=== PATIENT | female | born 1995 | race Caucasian/White ===

== ENCOUNTER 2022-08-12 11:11 | Emergency (ER) | payer MEDICAID ==
[~2022-08-12] VITALS: Ht 154.9 cm; Wt 79.0 kg
[~2022-08-12 11:11] MED LIST: CARI350T27 PO; CIPR-263 PO; DOCU240C26 PO; FERR325T30 PO; IBUP-2741 PO; PROM50TA2 PO; TRAM50TA PO
[2022-08-12 11:18] VITALS: BP 148/71
== END 2022-08-12 18:00 | disposition left against medical advice (07) ==
LOC: ER 11:11
DX: Z53.21 Procedure and treatment not carried out due to patient leaving prior to being seen by health care provider (principal); R07.9 Chest pain, unspecified; R10.9 Unspecified abdominal pain; N93.9 Abnormal uterine and vaginal bleeding, unspecified; R00.0 Tachycardia, unspecified; R94.31 Abnormal electrocardiogram [ECG] [EKG]
CPT/HCPCS: 93005